=== PATIENT | female | born 1950 | race Caucasian/White ===

== ENCOUNTER → 2016-12-15 | Outpatient (CLI) | payer BC ==
[~2016-12-15] MED LIST: ADULT LOW DOSE81 MG PO; ALLERGY10 M1 PO; DAILY MULTIPLE1 EAC1 PO; IRON325 M1 PO; LIPITOR DPS40 MG PO; LORTAB 5-325 M1 EACH PO; OMEGA-3 DPS1000 MG PO; PROTONIX40 MG PO; TENORMIN-DPS25 MG PO; ZOLOFT50 MG PO
== END | disposition home or self-care (01) ==
LOC: RAD.S 12:55
DX: N63 Unspecified lump in breast (principal); R92.1 Mammographic calcification found on diagnostic imaging of breast; Z85.3 Personal history of malignant neoplasm of breast; Z90.11 Acquired absence of right breast and nipple